=== PATIENT | female | born 1975 | race Caucasian/White ===

== ENCOUNTER → 2016-05-29 | Outpatient (CLI) | payer BC | LOC: HEART 5 09:50 | DX: I10 Essential (primary) hypertension (principal) ==

== ENCOUNTER → 2020-04-22 | Outpatient (CLI) | payer BC, OTHER | LOC: DTC 14:02 | DX: E66.9 Obesity, unspecified (principal) ==

== ENCOUNTER 2020-09-29 16:01 | Emergency (ER) | payer BC ==
[2020-09-29 18:31] LABS: HEMOGLOBIN 13.9 gm/dl (12.3-15.3); RED BLOOD COUNT 4.45 M/UL (4.00-5.10)
[2020-09-29 19:01] LABS: BUN/CREATININE RATIO 17 (0-10)
== END 2020-09-29 22:10 | disposition home or self-care (01) ==
LOC: ER1 16:01
PROVIDERS: Nurse Practitioner
DX: R20.2 Paresthesia of skin (principal); I10 Essential (primary) hypertension
CPT/HCPCS: 70450; 71045; 80053; 81001; 82550; 82553; 83874; 84484; 84703; 85025; 93005; 99284

== ENCOUNTER 2020-11-15 21:49 | Emergency (ER) | payer BC ==
[2020-11-15 22:35] LABS: HEMOGLOBIN 13.7 gm/dl (12.3-15.3); RED BLOOD COUNT 4.31 M/UL (4.00-5.10); WHITE BLOOD COUNT 7.9 K/UL (4.5-11.0)
[2020-11-15 22:47] LABS: BUN/CREATININE RATIO 19 (0-10)
== END 2020-11-16 01:43 | disposition home or self-care (01) ==
LOC: ER1 21:49
PROVIDERS: Physician Assistant
DX: R10.13 Epigastric pain (principal); I10 Essential (primary) hypertension
CPT/HCPCS: 80053; 81001; 82550; 82553; 83690; 83874; 84484; 84703; 85025; 93005; 99284

== ENCOUNTER 2021-01-24 09:19 | Emergency (ER) | payer BC ==
[2021-01-24 10:19] LABS: HEMOGLOBIN 12.8 gm/dl (12.3-15.3); RED BLOOD COUNT 4.1 M/UL (4.00-5.10)
[2021-01-24 10:48] LABS: BUN/CREATININE RATIO 15 (0-10)
== END 2021-01-24 18:23 | disposition home or self-care (01) ==
LOC: ER1 09:19
PROVIDERS: Student in an Organized Health Care Education/Training Program
DX: R07.89 Other chest pain (principal); R06.02 Shortness of breath; R10.9 Unspecified abdominal pain; Z88.0 Allergy status to penicillin
CPT/HCPCS: 76705; 80053; 82550; 82553; 83874; 84484; 84703; 85025; 93005; 93971; 99285; Q9967

== ENCOUNTER → 2021-03-31 | Outpatient (CLI) | payer BC | LOC: US 10:30 | DX: M79.661 Pain in right lower leg (principal) | CPT/HCPCS: 93971 ==

== ENCOUNTER → 2021-07-19 | Outpatient (CLI) | payer BC ==
[2021-07-19 10:10] LABS: BUN/CREATININE RATIO 13 (0-10)
== END ==
LOC: LAB 07:34
PROVIDERS: Nurse Practitioner Primary Care
DX: Z13.1 Encounter for screening for diabetes mellitus (principal); Z13.220 Encounter for screening for lipoid disorders
CPT/HCPCS: 36415; 80053; 80061; 83036

== ENCOUNTER → 2021-08-30 | Outpatient (CLI) | payer BC ==
[2021-08-30 11:17] LABS: HEMOGLOBIN 14.2 gm/dl (12.3-15.3); RED BLOOD COUNT 4.54 M/UL (4.00-5.10); WHITE BLOOD COUNT 7.5 K/UL (4.5-11.0)
[2021-08-30 12:00] LABS: BUN/CREATININE RATIO 15 (0-10)
== END ==
LOC: LAB 09:59
PROVIDERS: Internal Medicine
DX: Z13.220 Encounter for screening for lipoid disorders (principal); Z51.81 Encounter for therapeutic drug level monitoring; I10 Essential (primary) hypertension; E55.9 Vitamin D deficiency, unspecified; Z79.899 Other long term (current) drug therapy
CPT/HCPCS: 36415; 80053; 80061; 82607; 82746; 83036; 84439; 84443; 85025

== ENCOUNTER → 2021-11-01 | Outpatient (CLI) | payer BC ==
[2021-11-03 22:07] LABS: CHLAMYDIA BY NAA Negative (Negative); GONOCOCCUS BY NAA Negative (Negative); TRICH VAG BY NAA Negative (Negative)
== END ==
LOC: LAB 16:28
PROVIDERS: Nurse Practitioner Primary Care
DX: R30.0 Dysuria (principal)
CPT/HCPCS: 87661